=== PATIENT | female | born 1995 | race Caucasian/White ===

== ENCOUNTER → 2019-07-20 | Outpatient (CLI) | payer OTHER ==
[2019-07-20 11:55] LABS: BASO % 0 % (0-3); EOS % 0 % (0-3); HEMATOCRIT 40.8 % (36.0-47.0); LYMPH # 1.2 x10^3/uL (1.0-4.8); LYMPH % 16 % (24-48); MEAN CORPUSCULAR HEMOGLOBIN 32 pg (25-35); MEAN CORPUSCULAR HGB CONC 34 g/dL (31-37); MEAN CORPUSCULAR VOLUME 92 fL (79-100); MONO # 0.4 x10^3/uL (0.0-1.1); MONO % 6 % (0-9); NEUT # 5.9 x10^3uL (1.8-7.7); NEUT % 78 % (31-73); PLATELET COUNT 251 x10^3/uL (140-400); RED BLOOD COUNT 4.42 x10^6/uL (3.50-5.40); WHITE BLOOD COUNT 7.6 x10^3/uL (4.0-11.0)
--- NOTE | 2019-07-20 12:46 | RAD ---
Obstetric ultrasound first trimester: Reason for examination: Check dates and viability. Uterus measures 14.9 x 7.9 x 9.2 cm in greatest dimensions. Focal uterine mass is not seen. Cervix length is normal at 4.1 cm and appears to be closed. No gross abnormalities of seen at the maternal adnexa but the ovaries were not identified. There is an intrauterine gestational sac present which shows a normal contour. [place]-rump length is estimated at 8.29 cm corresponding to gestational age of 14 weeks 2 days. Cardiac activity is seen with a rate of 141 bpm. Adequate amniotic fluid appears be present. The placenta appears to be developing anteriorly with no evidence of previa or abruption. Femur length is 1.16 cm corresponding to gestational age of 13 weeks 3 days. Abdominal circumference is 7.43 cm corresponding to gestational age of 14 weeks 0 days. Head circumference is 9.09 cm corresponding to gestational age of 14 weeks 1 day. Biparietal diameter is 2.47 cm corresponding to gestational age of 14 weeks 2 days. Mean gestational age is estimated at 14 weeks 0 days with estimated date of confinement of 01/18/2020. IMPRESSION: Single viable intrauterine gestation with mean gestational age estimated at 14 weeks 0 days with an estimated date of confinement of 01/18/2020. Electronically signed by: Skye Barbosa MD (07/20/2019 12:43 PM) [id number]
[2019-07-20 20:09] LABS: FREE T4 1.04 ng/dL (0.76-1.46); THYROID STIM HORMONE (TSH) 1.158 uIU/mL (0.358-3.740)
[2019-07-21 18:06] LABS: RUBELLA IGG ANTIBODY 2.53 index (Immune >0.99)
== END ==
LOC: US 10:34
PROVIDERS: ATTEND Obstetrics & Gynecology
DX: Z34.91 Encounter for supervision of normal pregnancy, unspecified, first trimester (principal); Z3A.14 14 weeks gestation of pregnancy
CPT/HCPCS: 36415; 76801; 81220; 84439; 84443; 85025; 86592; 86703; 86762; 86787; 86803; 86850; 86900; 86901; 87340

== ENCOUNTER → 2019-09-01 | Outpatient (CLI) | payer OTHER ==
--- NOTE | 2019-09-01 11:47 | RAD ---
OB ULTRASOUND, > 14 WEEKS Clinical Indication: Encounter for -related examination in second trimester. Comparison: Obstetric ultrasound, July 20, 2019. Technique: Multiple grayscale images, color Doppler, and M-mode images of the uterus are obtained. Findings: There is a single intrauterine gestation in breech presentation. The placenta is anterior in location without evidence of placenta previa. The amount of amniotic fluid appears appropriate. Amniotic fluid index is 16.2 cm. Cervical length is 3.6 cm. Biometrical data: BPD = 4.6 cm for 19 weeks 6 days. HC = 17.6 cm for 20 weeks 1 days. AC = 16 cm for 21 weeks 1 days. FL = 3.1 cm for 19 weeks 4 days. HC/AC ratio = 1.1. Overall, the estimated sonographic gestational age is 20 weeks and 1 day for an estimated date of delivery of January 18, 2020. The estimated date of delivery provided by the last menstrual period is January 18, 2020. Estimated weight is 349 +/- 52 grams. A 4 chamber heart is identified with positive cardiac activity. The estimated heart rate is 141 beats per minute. Bilateral upper and lower extremities are identified. There is a three-vessel cord with cord insertion visualized. stomach and urinary bladder are identified. Both kidneys are seen. The visualized spine and brain are unremarkable. No obvious anatomic abnormalities are identified. Impression: Single live intrauterine gestation with estimated sonographic gestational age of 20 weeks and 1 day. Electronically signed by: Obdulio Gary MD (09/01/2019 11:44 AM) [id number]
== END | disposition home or self-care (01) ==
LOC: US 09:48
PROVIDERS: ATTEND Obstetrics & Gynecology
DX: Z34.92 Encounter for supervision of normal pregnancy, unspecified, second trimester (principal); Z3A.20 20 weeks gestation of pregnancy
CPT/HCPCS: 76805; 81511

== ENCOUNTER 2019-09-10 13:14 | Emergency (ER) | payer OTHER ==
[~2019-09-10] VITALS: Ht 160 cm; Wt 96.3 kg
[2019-09-10 13:16] VITALS: BP 141/86
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
== END 2019-09-10 13:51 | disposition home or self-care (01) ==
LOC: ER 13:14
DX: O9A.212 Injury, poisoning and certain other consequences of external causes complicating pregnancy, second trimester (principal); Z3A.22 22 weeks gestation of pregnancy; V49.49XA Driver injured in collision with other motor vehicles in traffic accident, initial encounter; Y93.I9 Activity, other involving external motion; Y92.488 Other paved roadways as the place of occurrence of the external cause; Y99.8 Other external cause status
CPT/HCPCS: 99281

== ENCOUNTER → 2019-10-27 | Outpatient (CLI) | payer OTHER ==
[2019-10-27 15:37] LABS: BASO % 0 % (0-3); EOS % 0 % (0-3); HEMATOCRIT 37.6 % (36.0-47.0); HEMOGLOBIN 12.6 g/dL (12.0-15.5); LYMPH # 1.1 x10^3/uL (1.0-4.8); LYMPH % 12 % (24-48); MEAN CORPUSCULAR HEMOGLOBIN 32 pg (25-35); MEAN CORPUSCULAR HGB CONC 34 g/dL (31-37); MEAN CORPUSCULAR VOLUME 95 fL (79-100); MONO # 0.6 x10^3/uL (0.0-1.1); MONO % 6 % (0-9); NEUT # 7.8 x10^3uL (1.8-7.7); NEUT % 81 % (31-73); PLATELET COUNT 271 x10^3/uL (140-400); RED BLOOD COUNT 3.95 x10^6/uL (3.50-5.40); RED CELL DISTRIBUTION WIDTH 13.6 % (11.5-14.5); WHITE BLOOD COUNT 9.5 x10^3/uL (4.0-11.0)
== END ==
LOC: LAB 13:10
PROVIDERS: ATTEND Obstetrics & Gynecology
DX: Z34.93 Encounter for supervision of normal pregnancy, unspecified, third trimester (principal); Z3A.00 Weeks of gestation of pregnancy not specified
CPT/HCPCS: 36415; 82950; 85025; 86850; 86900; 86901

== ENCOUNTER → 2019-10-29 | Outpatient (CLI) | payer OTHER | LOC: LAB 07:57 | PROVIDERS: ATTEND Obstetrics & Gynecology | DX: Z34.93 Encounter for supervision of normal pregnancy, unspecified, third trimester (principal); Z3A.00 Weeks of gestation of pregnancy not specified | CPT/HCPCS: 36415; 82951; 82952 ==